=== PATIENT | female | born 1990 | race American Indian/Alaskan Native ===

== ENCOUNTER 2017-04-01 14:09 | Emergency (ER) | payer OTHER ==
[2017-04-01 14:09] VITALS: BMI 24.7
[2017-04-01 14:24] VITALS: TEMP 98.1
[2017-04-01 14:39] LABS: URINE BILIRUBIN NEGATIVE (NEGATIVE); URINE BLOOD LARGE (NEGATIVE); URINE GLUCOSE (UA) NEGATIVE (NEGATIVE); URINE KETONE NEGATIVE (NEGATIVE); URINE LEUKOCYTE ESTERASE NEGATIVE Leu/uL (NEGATIVE); URINE PROTEIN 30 mg/dL (<30 mg/dL)
[2017-04-01 14:41] LABS: URINE APPEARANCE SL CLOUDY (CLEAR); URINE COLOR YELLOW (YELLOW)
[2017-04-01 14:46] LABS: URINE RBC TNTC /hpf (0-2); URINE WBC 0 - 2 /hpf (0-6)
[2017-04-01] MEDS ORDERED: Sodium Chloride 0.9% 1,000 ML IV STA ×2 (14:47→16:59)
--- NOTE | 2017-04-01 15:06 | ED PDOC ---
Arrival/HPI - General Chief Complaint: GI Problem Time Seen by Provider: 04/01/17 14:14 Historian: Patient - History of Present Illness Narrative History of Present Illness (Text): 04/01/17 15:05 A 26 year old female presents to the emergency department complaining of nausea , lightheadedness and chills since yesterday. Patient reports she ate [place] food yesterday and has an upset stomach, but no pain. Denies any sick contacts. Denies any vomiting, diarrhea, fever, dysuria or any other complaints at this time. Patient drinks alcohol occasionally. Time/Duration: 24 hours Symptom Onset: Sudden Symptom Course: Unchanged Activities at Onset: Rest Context: Home Past Medical History - Provider Review Nursing Documentation Reviewed: Yes - Psychiatric Hx Substance Use: No - Surgical History Hx Orthopedic Surgery: Yes Family/Social History - Physician Review Nursing Documentation Reviewed: Yes Family/Social History: No Known Family HX Smoking Status: Never Smoked Hx Alcohol Use: Yes Hx Substance Use: No Allergies/Home Meds Allergies/Adverse Reactions: Allergies shellfish derived Allergy (Verified 10/07/16 18:11) ANAPHYLAXIS Home Medications: Home Meds Medication Instructions Recorded Confirmed Cetirizine HCl [Zyrtec Allergy] 10 mg PO DAILY 04/01/17 04/01/17 Review of Systems - Physician Review All systems were reviewed & negative as marked: Yes - Review of Systems Constitutional: Other (lightheadedness, chills). absent: Fevers Gastrointestinal: Nausea. absent: Diarrhea, Vomiting Genitourinary Female: absent: Dysuria Physical Exam Vital Signs Reviewed: Yes Vital Signs Temp Pulse Resp BP Pulse Ox 04/01/17 17:00 83 16 110/76 97 04/01/17 14:24 98.1 F 82 16 119/72 100 Appearance: Positive for: Well-Appearing, Non-Toxic, Comfortable Pain Distress: None Mental Status: Positive for: Alert and Oriented X 3 - Systems Exam Head: Present: Atraumatic, Normocephalic Pupils: Present: PERRL Extroacular Muscles: Present: EOMI Conjunctiva: Present: Normal Mouth: Present: Moist Mucous Membranes Neck: Present: Normal Range of Motion Respiratory/Chest: Present: Clear to Auscultation, Good Air Exchange. No: Respiratory Distress, Accessory Muscle Use Cardiovascular: Present: Regular Rate and Rhythm, Normal S1, S2. No: Murmurs Abdomen: Present: Normal Bowel Sounds. No: Tenderness, Distention, Peritoneal Signs Back: Present: Normal Inspection Upper Extremity: Present: Normal Inspection. No: Cyanosis, Edema Lower Extremity: Present: Normal Inspection. No: Edema Neurological: Present: GCS=15, CN II-XII Intact, Speech Normal Skin: Present: Warm, Dry, Normal Color. No: Rashes Psychiatric: Present: Alert, Oriented x 3, Normal Insight, Normal Concentration Medical Decision Making ED Course and Treatment: 04/01/17 18:32 the pt reports feeling better and is comfortable w dc at this time. disc results , plan for f/u, rtr. - Lab Interpretations Lab Results: 04/01/17 15:00 04/01/17 15:00 Lab Results 04/01/17 15:00: Sodium 141, Potassium 3.6, Chloride 104, Carbon Dioxide 25, Anion Gap 16, BUN 9, Creatinine 0.9, Est GFR ( Amer) > 60, Est GFR (Non- Af Amer) > 60, Random Glucose 79, Calcium 8.9, Total Bilirubin 0.5, AST 26, ALT 37, Alkaline Phosphatase 57, Total Protein 7.9, Albumin 4.4, Globulin 3.5, Albumin/Globulin Ratio 1.3, Lipase 325 H 04/01/17 15:00: WBC 5.0, RBC 4.20, Hgb 12.3, Hct 35.5 L, MCV 84.5, MCH 29.3, MCHC 34.6, RDW 13.0, Plt Count 321, MPV 9.3, Gran % 47.3 L, Lymph % (Auto) 39.1 H, [place] % (Auto) 8.2 H, Eos % (Auto) 5.0, Baso % (Auto) 0.4, Gran # 2.36, Lymph # 2.0, [place] # 0.4, Eos # 0.3, Baso # 0.02 04/01/17 14:30: Urine Color Yellow, Urine Appearance Sl cloudy, Urine pH 6.0, Ur Specific [place] 1.020, Urine Protein 30 H, Urine Glucose (UA) Negative, Urine Ketones Negative, Urine Blood Large H, Urine Nitrate Negative, Urine Bilirubin Negative, Urine Urobilinogen 1.0 H, Ur Leukocyte Esterase Negative, Urine RBC Tntc, Urine WBC 0 - 2, Urine HCG, Qual Negative I have reviewed the lab results: Yes - Medication Orders Current Medication Orders: Discontinued Medications Diphenhydramine HCl (Benadryl) 25 mg IVP STAT STA Stop: 04/01/17 17:00 Last Admin: 04/01/17 17:24 Dose: 25 mg Sodium Chloride (Sodium Chloride 0.9%) 1,000 mls @ 999 mls/hr IV .Q1H1M STA Stop: 04/01/17 15:47 Last Admin: 04/01/17 15:17 Dose: 999 mls/hr Sodium Chloride (Sodium Chloride 0.9%) 1,000 mls @ 999 mls/hr IV .Q1H1M STA Stop: 04/01/17 17:59 Last Admin: 04/01/17 17:24 Dose: 999 mls/hr Metoclopramide HCl (Reglan) 10 mg IVP STAT STA Stop: 04/01/17 17:00 Last Admin: 04/01/17 17:24 Dose: 10 mg Ondansetron HCl (Zofran Inj) 4 mg IVP ONCE ONE Stop: 04/01/17 14:48 Last Admin: 04/01/17 15:18 Dose: 4 mg Ondansetron HCl (Zofran Inj) 4 mg IVP ONCE ONE Stop: 04/01/17 16:09 Last Admin: 04/01/17 16:19 Dose: 4 mg - Scribe Statement The provider has reviewed the documentation as recorded by the Viet Olson Provider Scribe Attestation: All medical record entries made by the Avelinoibmatt were at my direction and personally dictated by me. I have reviewed the chart and agree that the record accurately reflects my personal performance of the history, physical exam, medical decision making, and the department course for this patient. I have also personally directed, reviewed, and agree with the discharge instructions and disposition. Disposition/Present on Arrival - Present on Arrival Any Indicators Present on Arrival: No History of DVT/PE: No History of Uncontrolled Diabetes: No Urinary Catheter: No History of Decub. Ulcer: No History Surgical Site Infection Following: None - Disposition Have Diagnosis and Disposition been Completed?: Yes Diagnosis: Nausea and vomiting Disposition Time: 18:32 Condition: IMPROVED Referrals: Nu El MD [Primary Care Provider] - Follow up with primary Forms: [employer] (Georgian)
[2017-04-01 15:10] LABS: BASO # 0.02 K/mm3 (0.0-2.0); BASO % 0.4 % (0.0-3.0); EOS # 0.3 (0.0-0.7); GRAN # 2.36 (1.4-6.5); GRAN % 47.3 % (50.0-68.0); HEMATOCRIT 35.5 % (36.0-48.0); LYMPH % 39.1 % (22.0-35.0); MEAN CELL VOLUME 84.5 fl (80.0-105.0); MEAN CORPUSCULAR HEMOGLOBIN 29.3 pg (25.0-35.0); MEAN CORPUSCULAR HGB CONC 34.6 g/dl (31.0-37.0); MEAN PLATELET VOLUME 9.3 fl (7.0-11.0); MONO # 0.4 (0.1-0.6); MONO % 8.2 % (1.0-6.0)
[2017-04-01 15:19] LABS: ALB/GLOB RATIO 1.3 (1.1-1.8); ALKALINE PHOSPHATASE 57 U/L (38-133); ALT/SGPT 37 U/L (7-56); AST/SGOT 26 U/L (15-39); BILIRUBIN,TOTAL 0.5 mg/dL (0.2-1.3); BLOOD UREA NITROGEN 9 mg/dL (7-21); CALCIUM 8.9 mg/dL (8.4-10.5); CARBON DIOXIDE 25 mmol/L (21-33); CHLORIDE 104 mmol/L (98-107); GFR AFRICAN-AMERICAN > 60; GLUCOSE,RANDOM 79 mg/dL (70-110); LIPASE 325 U/L (23-300); POTASSIUM 3.6 mmol/L (3.6-5.0); SODIUM 141 mmol/L (132-148); TOTAL PROTEIN 7.9 g/dL (5.8-8.3)
[2017-04-01] MEDS ORDERED: DiphenhydrAMINE 50 mg/ml Inj IVP STA (16:59)
[2017-04-01 17:25] VITALS: O2SAT 97
[2017-04-01 18:42] VITALS: BP 117/73; PULSE 76; RESP 15
== END 2017-04-01 18:44 | disposition home or self-care (01) ==
LOC: ED 14:09
DX: R11.2 Nausea with vomiting, unspecified (principal)
CPT/HCPCS: 80053; 81001; 83690; 84703; 85025; 96361; 96374; 96375; 96376; 99284; J1200; J2405; J2765; J7040